=== PATIENT | female | born 1995 | race Caucasian/White ===

== ENCOUNTER → 2018-07-25 | Outpatient (CLI) | payer OTHER ==
[~2018-07-25] MED LIST: AUGMENTIN 875-1 EACH PO; LEVOFLOXACIN500 MG PO
--- NOTE | 2018-07-25 18:16 | Diagnostic Imaging Report ---
EXAM: Transabdominal and Transvaginal Pelvic Ultrasound INDICATION: \S\SPOTTING COMPARISON: None TECHNIQUE: Grayscale transverse and sagittal transabdominal and transvaginal images were obtained of the pelvis. Transvaginal imaging was medically necessary to better evaluate the endometrium and the adnexa. CLINICAL HISTORY: 23 year old A0; last menstrual period: 07/13/2018. FINDINGS: Uterus Orientation: Normal Size: 8.8 x 4.4 x 5.0 cm, Normal Mass: None Cervix: Normal Endometrium: Thickness: 0.5 cm, Normal. Appearance: Homogeneous echotexture without focal thickening. Right ovary: Size: 3.2 x 1.9 x 2.7 cm Mass/Cyst: None Left ovary: Size: 3.9 x 2.3 x 2.2 cm Mass/Cyst: None Adnexa: Normal Cul-de-sac: No free fluid IMPRESSION: Unremarkable pelvic ultrasound exam. Specifically, no masses or cystic lesions in the ovaries. No gestational sac seen. Signed by: Dr. Stephanie Lopez M.D. on 07/25/2018 6:13 PM
== END ==
LOC: US 16:30
PROVIDERS: ATTEND Family Medicine
DX: N92.0 Excessive and frequent menstruation with regular cycle (principal)
CPT/HCPCS: 76830; 76856

== ENCOUNTER → 2020-05-07 | Outpatient (CLI) | payer OTHER ==
--- NOTE | 2020-05-07 09:36 | Diagnostic Imaging Report ---
EXAM: Right upper quadrant abdominal ultrasound INDICATION: Elevated liver enzymes COMPARISON: CT abdomen and pelvis of 05/31/2013 TECHNIQUE: Transverse and longitudinal images of the right upper quadrant abdomen were obtained FINDINGS: Liver: Size: 17.0 cm in the right midclavicular line Appearance: Normal echogenicity, smooth contour Mass: No focal masses Gallbladder: No gallbladder distension, pericholecystic fluid, wall thickening, stone, or reported sonographic Lane's sign. Gallbladder wall measures 3 mm. Bile Ducts: Intrahepatic Ducts: No dilatation Extrahepatic Ducts: Common bile duct measures 3 mm Pancreas: Visualized portions of the pancreatic head, neck and proximal body are normal. Kidney: The right kidney measures 12.7 cm without evidence of hydronephrosis or stone. Vessels: Aorta: Visualized portions are normal Inferior Vena Cava: Visualized portions are normal Main Portal Vein: 1.0 cm, normal size with hepatopetal flow. Free Fluid: No ascites or pleural effusion IMPRESSION: No sonographic evidence of cholelithiasis or cholecystitis. Signed by: Jan Botello MD on 05/07/2020 9:33 AM
== END ==
LOC: US 08:32
PROVIDERS: ATTEND Internal Medicine Gastroenterology
DX: R74.8 Abnormal levels of other serum enzymes (principal)
CPT/HCPCS: 76705

== ENCOUNTER 2020-08-27 10:06 | Emergency (ER) | payer BC, OTHER ==
[~2020-08-27] VITALS: Ht 172.7 cm; Wt 54.4 kg
[2020-08-27] MEDS ORDERED: MORPHINE SULFATE INJ 4 MG/ML INJ 1ML IV STA (10:22)
--- NOTE | 2020-08-27 10:28 | Emergency Department Note ---
History of Present Illnes History of Present Illness Chief Complaint: Abdominal Complaints History of Present Illness This is a 25 year old female Chief Complaint Comment Patient in from home with complaints of right lower quadrant abdominal pain since Sunday. Patient reports that the pain has grown worse since Sunday and she has also started with fever, nausea and vomiting as well as diarrhea. Denies urinary symptoms. Historian: Patient Arrival Mode: Car [employer]el [employer]earing Broacher Required: No Onset (how long ago): day(s) (2) Location: RLQ Quality: Sharp Radiation: Reports non-radiation Severity: moderate Onset quality: gradual Duration (how long): day(s) (2) Timing of current episode: constant Progression: worsening Chronicity: new Context: Denies recent illness, Denies recent surgery Relieving factors: none Exacerbating factors: none Associated symptoms: Reports denies other symptoms Treatments prior to arrival: none Past Medical/Family History Physician Review I have reviewed the patient's past medical and family history. Any updates have been documented here. Past Medical History Recent Fever: Yes Clinical Suspicion of Infectio: Yes New/Unexplained Change in Ment: No Past Medical History: None Other Medical History: CYST R KIDNEY Past Surgical History: T&A Other Surgery: KIDNEY ABSCESS DRAINED Other Last Tetanus: UTD Review of Systems Review of Systems Constitutional: Reports as per HPI, Reports fever EENTM: Reports no symptoms Cardiovascular: Reports no symptoms Respiratory: Reports no symptoms Gastrointestinal: Reports as per HPI, Reports abdominal pain (RLQ), Reports nausea Genitourinary: Reports no symptoms Musculoskeletal: Reports no symptoms Integumentary: Reports no symptoms Neurological: Reports no symptoms Psychological: Reports no symptoms Endocrine: Reports no symptoms Hematological/Lymphatic: Reports no symptoms Physical Exam Related Data Allergies: Coded Allergies: carbinoxamine (Verified Allergy, Unknown, 03/02/15) pseudoephedrine (Verified Allergy, Unknown, 03/02/15) tomato (Verified Allergy, Unknown, 03/02/15) Triage Vital Signs Vital Signs Date Time Temp Pulse Resp B/P (MAP) Pulse Ox O2 Delivery O2 Flow Rate FiO2 08/27/20 10:12 100.9 83 16 100 Room Air Vital signs reviewed: Yes Physical Exam CONSTITUTIONAL Constitutional: Present well-developed, Present well-nourished HENT HENT: Present normocephalic, Present atraumatic, Present oropharynx clear/moist, Present nose normal HENT L/R: Present left ext ear normal, Present right ext ear normal EYES Eyes: Reports PERRL, Reports conjunctivae normal NECK Neck: Present ROM normal PULMONARY Pulmonary: Present effort normal, Present breath sounds normal CARDIOVASCULAR Cardiovascular: Present regular rhythm, Present heart sounds normal, Present capillary refill normal, Present normal rate GASTROINTESTINAL Abdominal: Present soft, Present bowel sounds normal, Present tender (RLQ); Absent nontender GENITOURINARY Genitourinary: Present exam deferred SKIN Skin: Present warm, Present dry MUSCULOSKELETAL Musculoskeletal: Present ROM normal NEUROLOGICAL Neurological: Present alert, Present oriented x 3, Present no gross motor or sensory deficits PSYCHOLOGICAL Psychological: Present mood/affect normal, Present judgement normal Results Laboratory Lab results reviewed: Yes Imaging Imaging results reviewed: Yes Diagnostics Tests Diagnostic test(s) reviewed: Yes Assessment & Plan Medical Decision Making MDM 25 y.o F presents for RLQ pain. Initial diff includes appendicitis VS colitis, vs UTI vs ectopic among others. Work up largely unremarkable. Her OBGYN called and informed of gonorrhea diagnosis. Will Treat at PID. Rocephin given and Doxy Rx. instructed her to f/u w/ [facility] [place]. Appropriate for DC. Reassessment Reassessment time: 14:32 Reassessment Pain improved after meds Assessment & Plan Final Impression: (1) Pelvic inflammatory disease Depart Disposition: HOME, SELF-CARE Last Vital Signs Date Time Temp Pulse Resp B/P (MAP) Pulse Ox O2 Delivery O2 Flow Rate FiO2 08/27/20 10:12 100.9 83 16 100 Room Air Home Meds No Active Prescriptions or Reported Meds LLOYD WALTERS MD Aug 27, 2020 10:28
[2020-08-27] MEDS ORDERED: SODIUM CHLORIDE 0.9% 1000ML 1,000 ML IV SCH (10:30)
[2020-08-27] MEDS ORDERED: ONDANSETRON HCL INJ 2MG/ML 2ML 2 MG/ML VIAL IV PRN (10:30)
[2020-08-27 10:35] LABS: BASOPHILS % 0.3 % (0.0-1.0); EOSINOPHILS # (AUTO) 0.1 (0.0-0.4); EOSINOPHILS % 0.8 % (0.0-6.0); HEMATOCRIT 36.2 % (34.2-44.1); HEMOGLOBIN 11.5 g/dL (12.0-16.0); LYMPHOCYTES # (AUTO) 1.2 (1.0-3.2); LYMPHOCYTES % 9.4 % (18.0-39.1); MEAN CORPUSCULAR HEMOGLOBIN 29.1 pg (28-32); MEAN CORPUSCULAR HGB CONC 31.8 g/dL (31-35); MEAN CORPUSCULAR VOLUME 91.6 fL (81-99); MONOCYTES # (AUTO) 0.8 (0.2-0.8); MONOCYTES % 6.7 % (4.4-11.3); NEUTROPHILS # (AUTO) 10.3 (2.1-6.9); NEUTROPHILS % 82.5 % (38.7-80.0); PLATELET COUNT 163 x10e3/uL (140-360); RED BLOOD COUNT 3.95 x10e6/uL (3.6-5.1); RED CELL DISTRIBUTION WIDTH 15.4 % (11.7-14.4)
[2020-08-27 10:58] LABS: ALANINE AMINOTRANSFERASE 14 IU/L (0-55); ALBUMIN 3.7 g/dL (3.5-5.0); ALBUMIN/GLOBULIN RATIO 1.2 (0.8-2.0); ALKALINE PHOSPHATASE 88 IU/L (40-150); BLOOD UREA NITROGEN 11 mg/dL (7-26); BUN/CREATININE RATIO 14 (6-25); CALCIUM 9.3 mg/dL (8.4-10.2); CARBON DIOXIDE 26 mmol/L (22-29); CHLORIDE 105 mmol/L (98-107); CREATININE, SERUM 0.78 mg/dL (0.57-1.11); EST GLOMERULAR FILTRATION RATE > 60 ML/MIN (60-); GLUCOSE 87 mg/dL (74-118); SODIUM 139 mmol/L (136-145)
[2020-08-27 11:15] LABS: LIPASE 6 U/L (8-78)
[2020-08-27] MEDS ORDERED: SODIUM CHLORIDE 0.9% 50ML 50 ML ONE (11:19)
[2020-08-27] MEDS ORDERED: IOPAMIDOL 370 MG/ML 200 ML INFUS..BTL INJ ONE (11:19)
[2020-08-27 11:21] LABS: HCG,QUANTITATIVE < 1.20 mIU/mL (0-10)
--- NOTE | 2020-08-27 12:04 | Diagnostic Imaging Report ---
CT of the abdomen and pelvis, with contrast. History: Right lower quadrant pain. Comparison: Pelvic ultrasound from 07/25/1980. Technique: Multidetector CT scanning of the abdomen and pelvis was performed from the level of the lung bases to the inferior pubic rami after intravenous administration of contrast. Coronal and sagittal multiplanar reformations were obtained. RADIATION DOSE: Total DLP: 709.60 mGy*cm Dose modulation, iterative reconstruction, and/or weight based adjustment of the mA/kV was utilized to reduce the radiation dose to as low as reasonably achievable. FINDINGS: The visualized intrathoracic contents are unremarkable. The liver is normal in size and attenuation without evidence of focal abnormality. The gallbladder is unremarkable. There is no biliary ductal dilatation. The stomach, spleen, pancreas, and bilateral adrenal glands are unremarkable. The kidneys are normal in size and location enhance symmetrically. Focal area of cortical scarring noted along the mid/inferior aspect of the right kidney. A punctate nonobstructing stone is identified within the inferior pole of the right kidney (axial image 40, coronal image 59). There is no evidence for hydronephrosis. No ureteral stone or dilatation is appreciated. Multiple phleboliths are noted within the pelvis, none of which to be localized within the urinary system. The urinary bladder demonstrates no significant abnormalities. The uterus appears heterogeneous, recommend correlation with menstrual cycle. No abnormal adnexal masses are identified. The abdominal aorta is normal in course and caliber. The IVC is unremarkable. Please note evaluation of bowel is limited without the use of enteric contrast material. The visualized loops of small and large bowel demonstrate no evidence of obstruction or inflammation. The appendix is visualized and appears unremarkable. There is no ascites or intraperitoneal free air. Tiny fat-containing umbilical hernia noted. No abnormally enlarged lymph nodes are identified within the abdomen or pelvis. The osseous structures demonstrate no evidence for acute fracture or destructive process. The extraperitoneal soft tissues are unremarkable. IMPRESSION: Punctate nonobstructing stone identified within the inferior pole of the right kidney. No evidence for hydronephrosis or obstructive uropathy. No other acute abdominal pelvic process identified. Normal appearing appendix visualized. Signed by: Dr. Alli Camacho MD on 08/27/2020 12:01 PM
[2020-08-27] MEDS ORDERED: MORPHINE SULFATE 2 MG/ML SYR 1ML IV STA (12:32)
[2020-08-27] MEDS ORDERED: ACETAMINOPHEN 325 MG TAB PO ONE (12:45)
--- OUTSIDE RECORDS SUMMARY | 2020-08-27 12:47 | XMS REPORT | Continuity of Care Document ---
Author Author [facility] t Organization [facility] Address [address] [place] [address] Phone Unavailable Care Team Providers Care Lending Consultant Name Role Phone Khang Cross Attphys Unavailable AJ GIBSON Attphys Unavailable RE MCGEE Attphys Unavailable Payers Payer Name Policy Type Policy Number Effective Date Expiration Date S ource Problems This patient has no known problems. Allergies, Adverse Reactions, Alerts Allergy Name Allergy Type Status Severity Reaction(s) Onset Date Inacti ve Date Treating Clinician Comments Source pseudoephedrine HCl DA Active MO 2015-07-21 00:00:00 [facility] carbinoxamine maleate DA Active MO 2015-07-21 00:00:00 [facility] latex DA Active MD 2015-07-21 00:00:00 [facility] Medications This patient has no known medications. Procedures This patient has no known procedures. Results Test Description Test Time Test Comments Results Result Comments Source CT ABDOMEN/PELVIS W 2020-08-27 11:48:00 [facility] 1995 Sex: F [facility] [address] [address] Patient Name: SONA MILLIGAN MR #: [id number] : 1995 Age/Sex: 25/F Req #: [id number] Adm Physician: Ordered by: Lloyd Cross MD Report #: [id number] Location: ER Room/Bed: Procedure: [id number] CT/CT ABDOMEN/PELVIS W Exam Date: 08/27/20 Exam Time: 1120 REPORT STATUS: Signed CT of the abdomen and pelvis, with contrast. History: Right lower quadrant pain. Comparison: Pelvic ultrasound from 07/25/1980. Technique: Multidetector CT scanning of the abdomen and pelvis was performed from the level of the lung bases to the inferior pubic rami after intravenous administration of contrast. Coronal and sagittal multiplanar reformations were obtained. RADIATION DOSE: Total DLP: 709.60 mGy*cm Dose modulation, iterative reconstruction, and/or weight based adjustment of the mA/kV was utilized to reduce the radiation dose to as low as reasonably achievable. FINDINGS: The vis ualized intrathoracic contents are unremarkable. The liver is normal in size and attenuation without evidence of focal abnormality. The gallbladder is unremarkable. There is no biliary ductal dilatation. The stomach, spleen, pancreas, and bilateral adrenal glands are unremarkable. The kidneys are normal in size and location enhance symmetrically. Focal area of cortical scarring noted along the mid/inferior aspect of the right kidney. A punctate nonobstructing stone is identified within the inferior pole of the right kidney (axial image 40, coronal image 59). There is no evidence for hydronephrosis. No ureteral stone or dilatation is appreciated. Multiple phleboliths are noted within the pelvis, none of which to be localized within the urinary system. The urinary bladder demonstrates no significant abnormalities. The uterus appears heterogeneous, recommend correlation with menstrual cycle. No abnormal adnexal masses are identified. The abdominal aorta is normal in course and caliber. The IVC is unremarkable. Please note evaluation of bowel is limited without the use of enteric contrast material. The visualized loops of small and large bowel demonstrate no evidence of obstruction or inflammation. The appendix is visualized and appears unremarkable. There is no ascites or intraperitoneal free air. Tiny fat- containing umbilical hernia noted. No abnormally enlarged lymph nodes are identified within the abdomen or pelvis. The osseous structures demonstrate no evidence for acute fracture or destructive process. The extraperitoneal soft tissues are unremarkable. IMPRESSION: Punctate nonobstructing stone identified within the inferior pole of the right kidney. No evidence for hydronephrosis or obstructive uropathy. No other acute abdominal pelvic process identified. Normal appearing appendix visualized. Signed by: Dr. Alli Camacho MD on 08/27/2020 12:01 PM Dictated By: ALLI CAMACHO MD 120 Transcribed By: QUENTIN on 08/27/20 120 COPY TO: LLOYD CROSS MD Novel Coronavirus 2018 2020-05-25 07:15:00 Test Item Novel Coronavirus 2019 nCoV (test code = COVID19) Not Detected Not Detected Testing was performed using the Aptima SARS-CoV-2 assay.This test was developed and its performance characteristicsdetermined by [employer]. This test has not beenFDA cleared or approved. This test has been authorized byFDA under an Emergency Use Authorization (EUA). This testis only authorized for the duration of time the declarationthat circumstances exist justifying the authorization ofthe emergency use of in vitro diagnostic tests fordetection of SARS-CoV-2 virus and/or diagnosis of COVID-19infection under section 564(b)(1) of the Act, 21 U.S.C.360bbb-3(b)(1), unless the authorization is terminated orrevoked sooner. When diagnostic testing is negative, thepossibility of a false negative result should be consideredin the context of a patient's recent exposures and thepresence of clinical signs and symptoms consistent withCOVID- 19. An individual without symptoms of COVID-19 andwho is not shedding SARS-CoV-2 virus would expect to have anegative (not detected) result in this assay. [facility] (test code = LCAIP) Novel Coronavirus [id number] 07:15:00* Test Item Value Reference Range Interpretation Comments Novel Coronavirus 2019 nCoV (test code = COVID19) Not Detected Not Detected Testing was performed using the Aptima SARS-CoV-2 assay.This test was developed and its performance characteristicsdetermined by [employer]. This test has not beenFDA cleared or approved. This test has been authorized byA under an Emergency Use Authorization (EUA). This testis only authorized for the duration of time the declarationthat circumstances exist justifying the authorization ofthe emergency use of in vitro diagnostic tests fordetection of SARS-CoV-2 virus and/or diagnosis of COVID-19infection under section 564(b)(1) of the Act, 21 U.S.C.360bbb-3(b)(1), unless the authorization is terminated orrevoked sooner. When diagnostic testing is negative, thepossibility of a false negative result should be consideredin the context of a patient's recent exposures and thepresence of clinical signs and symptoms consistent withCOVID- 19. An individual without symptoms of COVID-19 andwho is not shedding SARS-CoV-2 virus would expect to have anegative (not detected) result in this assay. [facility] Inpatient (test code = LCAIP) () ReceivedPerformed At: [id number] [place], [place] [id number] Nunez MD Ph:[phone] AG HEPATITIS B [id number] 07:18:00* Test Item Value Reference Range Interpretation Comments AG HEPATITIS B SURFACE (test code = HBSAG) NONREACTIVE NONREACTIVE IS CONSENT FORM SIGNED FOR HIV TESTING? YAB HEPATITIS C [id number] 07:18:00* Test Item Value Reference Range Interpretation Comments AB HEPATITIS C (test code = HCVAB) NONREACTIVE NONREACTIVE SIGNAL TO CUTOFF (test code = CUTOFF) 0.03 <0.80 N IS CONSENT FORM SIGNED FOR HIV TESTING? YAB [id number] 07:18:00* Test Item Value Reference Range Interpretation Comments AB TREPONEMA (test code = TREPAB) NONREACTIVE NONREACTIVE IS CONSENT FORM SIGNED FOR HIV TESTING? YAB HIV 1 07:18:00* Test Item Value Reference Range Interpretation Comments AB HIV 1 2 (test code = QSH18FS) NONREACTIVE NONREACTIVE Done by Siemens [employer]cline[employer] 4th Gen HIV Ag/Ab Combo Screen IS CONSENT FORM SIGNED FOR HIV TESTING? YLIVER [id number] 07:11:00* Test Item Value Reference Range Interpretation Comments TOTAL PROTEIN (test code = PROT) 5.7 gm/dL 6.3-8.2 L ALBUMIN (test code = ALB) 2.3 gm/dL 3.4-4.8 L BILIRUBIN TOTAL (test code = BILT) 0.2 mg/dL 0.2-1.0 N BILIRUBIN DIRECT (test code = BILD) 0.1 mg/dL <0.2 N SGOT/AST (test code = AST) 33 units/L 15-37 N SGPT/ALT (test code = ALT) 68 units/L 12-78 N ALKALINE PHOSPHATASE TOTAL (test code = ALKP) 375 units/L 46-116 H Specimen Comment: BLOOD SPECIMEN ALREADY IN LABCBC W/AUTO [id number] 02:03:00* Test Item Value Reference Range Interpretation Comments WHITE BLOOD CELL (test code = WBC) 12.8 K/mm3 6.6-12.1 H RED BLOOD CELL (test code = RBC) 3.00 M/mm3 3.45-5.01 L HEMOGLOBIN (test code = HGB) 9.3 g/dL 10.7-13.9 L HEMATOCRIT (test code = HCT) 28.9 % 32.1-42.1 L MEAN CELL VOLUME (test code = MCV) 96 fL 84.1-94.8 H MEAN CELL HGB (test code = MCH) 31.0 pg 27-35 N MEAN CELL HGB CONCETRATION (test code = MCHC) 32.2 gm/dL 32.2-34. 1 N RED CELL DISTRIBUTION WIDTH (test code = RDW) 13.7 % 12.4-16. 5 N PLATELET COUNT (test code = PLT) 171 K/mm3 133-385 N MEAN PLATELET VOLUME (test code = MPV) 14.0 fl 9.1-12.7 H NEUTROPHIL % (test code = NT%) 69.8 % 56.5-79.4 N LYMPHOCYTE % (test code = LY%) 16.8 % 14.3-34.3 N MONOCYTE % (test code = MO%) 6.8 % 5.1-10.4 N EOSINOPHIL % (test code = EO%) 3.4 % 0.1-3.0 H BASOPHIL % (test code = BA%) 0.9 % 0.1-1.0 N NEUTROPHIL # (test code = NT#) 9.0 K/mm3 LYMPHOCYTE # (test code = LY#) 2.2 K/mm3 MONOCYTE # (test code = MO#) 0.9 K/mm3 EOSINOPHIL # (test code = EO#) 0.44 K/mm3 BASOPHIL # (test code = BA#) 0.1 K/mm3 RBC MORPHOLOGY REQUIRED (test code = RBCM) NORMAL NORMAL PLATELET MORPHOLOGY REQUIRED (test code = PLTMR) NORMAL DARIEN L Coronavirus 2018 nCoV [id number] 01:27:00* Test Item Value Reference Range Interpretation Comments Coronavirus 2019 nCoV Bedside (test code = COVNONPUIBED) Negative Negative RESULTS CALLED TO [place] BACK & CONFIRMED? TIMA [facility]. 05/24/20 0127 This result does not rule out co-infections with otherpathogens. * False negative results may occur if a specimen isimproperly collected, transported or handled. False negativeresults may also occur if amplification inhibitors arepresent in the specimen or if inadequate levels of virusesare present in the specimen. Negative results should beconsidered in the context of a patient's recent exposures,history and the presence of clinical signs and symptomsconsistent with COVID-19. * Negative results should be treated as p resumptive andtested with an alternative FDA authorized molecular assayif necessary for clinical managment, including infectioncontrol. * As with any molecular test,mutations within the target regions Raphael ID NOW COVID-19 test could affect primerand/or probe binding resulting in failure to detect therescence of the virus.TEST PERFORMED UNDER AN EMERGENCY USE AUTHORIZATION FROM [facility] [id number] 09:30:[address] [address] Patient Name: SONA MILLIGAN MR #: [id number] : 1995 Age/Sex: 25/F Req #: [id number] Adm Physician: Ordered by: AJ GIBSON MD Report #: [id number] Location: Room/Bed: Procedure: [id number] US/US LIVER Exam Date: 05/07/20 Exam Time: 923 REPORT STATUS: Signed EXAM: Right upper quadrant abdominal ultrasound INDICATION: Elevated liver enzymes COMPARISON: CT a bdomen and pelvis of 05/31/2013 TECHNIQUE: Transverse and longitudinal images of the right upper quadrant abdomen were obtained FINDINGS: Liver: Size: 17.0 cm in the right midclavicular line Appearance: Normal echogenici ty, smooth contour Mass: No focal masses Gallbladder: No gallbladder dist ension, pericholecystic fluid, wall thickening, stone, or reported sonographic Lane's sign. Gallbladder wall measures 3 mm. Bile Ducts: Intrahepatic Ducts: No dilatation Extrahepatic Ducts: Common bile duct measures 3 mm Nixon creas: Visualized portions of the pancreatic head, neck and proximal body are normal. Kidney: The right kidney measures 12.7 cm without evidence of hydro nephrosis or stone. Vessels: Aorta: Visualized portions are normal I nferior Vena Cava: Visualized portions are normal Main Portal Vein: 1.0 cm, no rmal size with hepatopetal flow. Free Fluid: No ascites or pleural effusi on IMPRESSION: No sonographic evidence of cholelithiasis or cholecystitis . Signed by: Matt Wilder MD on 05/07/2020 9:33 AM Dictated By: LUPE WILDER MD 2 Transcribed B y: QUENTIN on 05/07/20932 COPY TO: AJ GIBSON MD CBC W/AUTO [id number] 23:36:00* Test Item Value Reference Range Interpretation Comments WHITE BLOOD CELL (test code = WBC) 17.36 x10 3/uL 4.5-11.0 H RED BLOOD CELL (test code = RBC) 3.12 x10 6/uL 3.54-5.02 L HEMOGLOBIN (test code = HGB) 10.2 g/dL 11.0-15.0 L HEMATOCRIT (test code = HCT) 30.0 % 33.0-45.0 L MEAN CELL VOLUME (test code = MCV) 96.2 fL 81.0-99.0 N MEAN CELL HGB (test code = MCH) 32.7 pg 27.0-33.0 N MEAN CELL HGB CONCETRATION (test code = MCHC) 34.0 g/dL 33.0-37. 0 N RED CELL DISTRIBUTION WIDTH CV (test code = RDW) 13.2 % 11.5- 14.5 N RED CELL DISTRIBUTION WIDTH SD (test code = RDW-SD) 46.4 fL 37 .0-54.0 N PLATELET COUNT (test code = PLT) 165 x10 3/uL 150-400 N IMMATURE PLATELET FRACTION (test code = IPF) 18.4 % 0.9-11.2 H MEAN PLATELET VOLUME (test code = MPV) 13.4 fL 7.0-9.0 H MANUAL DIFF REQUIRED (test code = MDIFF) YES WBC [id number] 23:36:00* Test Item Value Reference Range Interpretation Comments SEGMENTED NEUTROPHILS (test code = SEG) 80.9 % 37-69 H LYMPHOCYTE (test code = LYMPH) 10.9 % 23-55 L MONOCYTE (test code = MON) 5.5 % 0-10 N EOSINOPHIL (test code = EOS) 1.8 % 0.0-4.0 N MYELOCYTE (test code = MYELO) 0.9 % 0.0-0.0 H POLYCHROMASIA (test code = POLC) 1+ ANISOCYTOSIS (test code = ANISO) SLIGHT MACROCYTOSIS (test code = MACR) 1+ PLATELET ESTIMATE (test code = PLTEST) Adequate THOUSAND ADEQUATE CBC W/AUTO [id number] 23:32:00* Test Item Value Reference Range Interpretation Comments WHITE BLOOD CELL (test code = WBC) 17.36 x10 3/uL 4.5-11.0 H RED BLOOD CELL (test code = RBC) 3.12 x10 6/uL 3.54-5.02 L HEMOGLOBIN (test code = HGB) 10.2 g/dL 11.0-15.0 L HEMATOCRIT (test code = HCT) 30.0 % 33.0-45.0 L MEAN CELL VOLUME (test code = MCV) 96.2 fL 81.0-99.0 N MEAN CELL HGB (test code = MCH) 32.7 pg 27.0-33.0 N MEAN CELL HGB CONCETRATION (test code = MCHC) 34.0 g/dL 33.0-37. 0 N RED CELL DISTRIBUTION WIDTH CV (test code = RDW) 13.2 % 11.5- 14.5 N RED CELL DISTRIBUTION WIDTH SD (test code = RDW-SD) 46.4 fL 37 .0-54.0 N PLATELET COUNT (test code = PLT) 165 x10 3/uL 150-400 N IMMATURE PLATELET FRACTION (test code = IPF) 18.4 % 0.9-11.2 H MEAN PLATELET VOLUME (test code = MPV) 13.4 fL 7.0-9.0 H MANUAL DIFF REQUIRED (test code = MDIFF) YES WBC [id number] 23:32:00* Test Item Value Reference Range Interpretation Comments ANISOCYTOSIS (test code = ANISO) PLATELET ESTIMATE (test code = PLTEST) THOUSAND ADEQUATE CBC W/AUTO [id number] 23:32:00* Test Item Value Reference Range Interpretation Comments WHITE BLOOD CELL (test code = WBC) 17.36 x10 3/uL 4.5-11.0 H RED BLOOD CELL (test code = RBC) 3.12 x10 6/uL 3.54-5.02 L HEMOGLOBIN (test code = HGB) 10.2 g/dL 11.0-15.0 L HEMATOCRIT (test code = HCT) 30.0 % 33.0-45.0 L MEAN CELL VOLUME (test code = MCV) 96.2 fL 81.0-99.0 N MEAN CELL HGB (test code = MCH) 32.7 pg 27.0-33.0 N MEAN CELL HGB CONCETRATION (test code = MCHC) 34.0 g/dL 33.0-37. 0 N RED CELL DISTRIBUTION WIDTH CV (test code = RDW) 13.2 % 11.5- 14.5 N RED CELL DISTRIBUTION WIDTH SD (test code = RDW-SD) 46.4 fL 37 .0-54.0 N PLATELET COUNT (test code = PLT) 165 x10 3/uL 150-400 N IMMATURE PLATELET FRACTION (test code = IPF) 18.4 % 0.9-11.2 H MEAN PLATELET VOLUME (test code = MPV) 13.4 fL 7.0-9.0 H MANUAL DIFF REQUIRED (test code = MDIFF) YES WBC [id number] 23:32:00* Test Item Value Reference Range Interpretation Comments ANISOCYTOSIS (test code = ANISO) PLATELET ESTIMATE (test code = PLTEST) THOUSAND ADEQUATE BASIC METABOLIC [id number] 23:23:00* Test Item Value Reference Range Interpretation Comments SODIUM (test code = NA) 135 mEq/L 134-147 N POTASSIUM (test code = K) 3.5 mEq/L 3.4-5.0 N CHLORIDE (test code = CL) 101 mEq/L 100-108 N CARBON DIOXIDE (test code = CO2) 27 mEq/L 21-33 N ANION GAP (test code = GAP) 11 0-20 N GLUCOSE (test code = GLU) 86 mg/dL 70-110 N BLOOD UREA NITROGEN (test code = BUN) 9 mg/dL 7-18 N GLOMERULAR FILTRATION RATE (test code = GFR) 87.4 110-120 L Units of measure = ml/min/1.73 m2 CREATININE (test code = CREAT) 0.8 mg/dL 0.6-1.3 N CALCIUM (test code = CA) 9.3 mg/dL 8.0-10.5 N HEPATIC FUNCTION [id number] 23:23:00* Test Item Value Reference Range Interpretation Comments TOTAL PROTEIN (test code = PROT) 6.8 g/dL 6.4-8.2 N ALBUMIN (test code = ALB) 2.70 g/dL 3.4-5.0 L BILIRUBIN TOTAL (test code = BILT) 0.3 MG/DL <1.5 N BILIRUBIN DIRECT (test code = BILD) < 0.10 MG/DL 0.0-0.30 N BILIRUBIN INDIRECT (test code = BILIND) 0.20 MG/DL SGOT/AST (test code = AST) 36 IUnit/L 15-37 N SGPT/ALT (test code = ALT) 77 IUnit/L 15-65 H ALKALINE PHOSPHATASE TOTAL (test code = ALKP) 179 IUnit/L 20-125 H [id number] 23:23:00* Test Item Value Reference Range Interpretation Comments LIPASE (test code = LIP) 103 IUnit/L 73-393 N BASIC METABOLIC [id number] 23:18:00* Test Item Value Reference Range Interpretation Comments SODIUM (test code = NA) 135 mEq/L 134-147 N POTASSIUM (test code = K) 3.5 mEq/L 3.4-5.0 N CHLORIDE (test code = CL) 101 mEq/L 100-108 N CARBON DIOXIDE (test code = CO2) 27 mEq/L 21-33 N ANION GAP (test code = GAP) 11 0-20 N GLUCOSE (test code = GLU) 86 mg/dL 70-110 N BLOOD UREA NITROGEN (test code = BUN) 9 mg/dL 7-18 N GLOMERULAR FILTRATION RATE (test code = GFR) 110-120 CREATININE (test code = CREAT) mg/dL 0.6-1.3 CALCIUM (test code = CA) 9.3 mg/dL 8.0-10.5 N HEPATIC FUNCTION [id number] 23:18:00* Test Item Value Reference Range Interpretation Comments TOTAL PROTEIN (test code = PROT) g/dL 6.4-8.2 ALBUMIN (test code = ALB) g/dL 3.4-5.0 BILIRUBIN TOTAL (test code = BILT) MG/DL <1.5 BILIRUBIN DIRECT (test code = BILD) MG/DL 0.0-0.30 SGOT/AST (test code = AST) IUnit/L 15-37 SGPT/ALT (test code = ALT) IUnit/L 15-65 ALKALINE PHOSPHATASE TOTAL (test code = ALKP) IUnit/L 20-125 [id number] 23:18:00* Test Item Value Reference Range Interpretation Comments LIPASE (test code = LIP) 103 IUnit/L 73-393 N CBC W/AUTO [id number] 23:13:00* Test Item Value Reference Range Interpretation Comments WHITE BLOOD CELL (test code = WBC) 17.36 x10 3/uL 4.5-11.0 H RED BLOOD CELL (test code = RBC) 3.12 x10 6/uL 3.54-5.02 L HEMOGLOBIN (test code = HGB) 10.2 g/dL 11.0-15.0 L HEMATOCRIT (test code = HCT) 30.0 % 33.0-45.0 L MEAN CELL VOLUME (test code = MCV) 96.2 fL 81.0-99.0 N MEAN CELL HGB (test code = MCH) 32.7 pg 27.0-33.0 N MEAN CELL HGB CONCETRATION (test code = MCHC) 34.0 g/dL 33.0-37. 0 N RED CELL DISTRIBUTION WIDTH CV (test code = RDW) 13.2 % 11.5- 14.5 N RED CELL DISTRIBUTION WIDTH SD (test code = RDW-SD) 46.4 fL 37 .0-54.0 N PLATELET COUNT (test code = PLT) 165 x10 3/uL 150-400 N IMMATURE PLATELET FRACTION (test code = IPF) 18.4 % 0.9-11.2 H MEAN PLATELET VOLUME (test code = MPV) 13.4 fL 7.0-9.0 H NEUTROPHIL % (test code = NT%) % 56.0-77.0 LYMPHOCYTE % (test code = LY%) % 14.0-32.0 NEUTROPHIL # (test code = NT#) x10 3/uL 2.0-7.6 LYMPHOCYTE # (test code = LY#) x10 3/uL 1.0-3.8 MANUAL DIFF REQUIRED (test code = MDIFF) UA RFLX MICR CULT IF [id number] 23:11:00* Test Item Value Reference Range Interpretation Comments UA COLOR (test code = COLU) YELLOW YEL/STRAW UA APPEARANCE (test code = APPU) CLEAR CLEAR UA GLUCOSE DIPSTICK (test code = DGLUU) NEGATIVE NEGATIVE UA BILIRUBIN DIPSTICK (test code = BILU) NEGATIVE NEGATIVE UA KETONE DIPSTICK (test code = KETU) NEGATIVE NEGATIVE UA SPECIFIC GRAVITY (test code = SGU) 1.009 1.005-1.030 N UA BLOOD DIPSTICK (test code = DIANA) NEGATIVE NEGATIVE UA PH DIPSTICK (test code = LUH) 6.0 5.0-7.0 N UA PROTEIN DIPSTICK (test code = PROU) NEGATIVE NEGATIVE UA UROBILINIOGEN DIPSTICK (test code = URO) 0.2 mg/dL 0.2-1.0 UA NITRITE DIPSTICK (test code = DOE) NEGATIVE NEGATIVE UA LEUKOCYTE ESTERASE DIPSTICK (test code = LEUU) NEGATIVE NEGA TIVE UA WBC (test code = WBCU) 4-9 WBC/HPF 0-3 A UA RBC (test code = RBCU) 0-3 RBC/HPF 0-3 UA WBC NO REFLEX (test code = WBCUCL) 4-9 WBC/HPF 0-3 A UA BACTERIA (test code = BACU) TRACE /HPF NONE SEEN UA SQUAMOUS CELLS (test code = SQU) 0-5 /HPF NONE SEEN UA MUCUS (test code = MUCU) TRACE /LPF NONE SEEN Indication for culture: Flank PainSpecimen Description: CLEAN CATCH- US [id number] 23:10:00 Name: SONA MILLIGAN [facility] : 1995 Age/S: 24 / F [address] [place] [address] Unit #: [id number] Loc: [place] [address] Phys: Caty Estes NP Acct: [id number] Dis Date: Status: REG ER PHONE #: [phone] Exam Date: 04/08/2020 2303 FAX #: [phone] Reason: abd pain, 33 weeks EXAMS: CPT CODE: [id number] [place] L[place] 02874 STUDY: - US LTD 04/08/2020 9:53 PM Ordering Physician: Caty Estes NP Patient Name: SONA MILLIGAN MR: [id number] : 1995; Age: 24 years y/o Female Clinical Indication: abd pain, 33 weeks Comparison: None FINDINGS: Multiple static images from an obstetrical ultrasound including mac scale and M-mode imaging are submitted for interpretation. GENERAL DESCRIPTION Single live intrauterine . Presentation: Cephalic/vertex Placental location: Anterior Placental grade: I Placenta previa: No. Amniotic fluid: Normal in appearance. GORDON: Qualitatively adequate. Cervix: Limited visualization estimated at approximately 4.3 cm. STRUCTURES Brain: Limited visualization without abnormality. Spine: Limited visualization without abnormality. Heart: Normal 4 chambered. heart rate: 138 beats per minute. Kidneys: Limited visualization without abnormality. Urinary Bladder: Never well-visualized. Stomach: Normal. Umbilical Cord: 3 vessel. Cord Insertion: Limited visualization without abnormality. Extremities: Limited visualization without abnormality. BIOMETRIC MEASUREMENTS BPD 8.5 cm 34 W 1 D HEAD CIRCUMFERENCE 30.5 cm 33 W 6 D PAGE 1 Signed Report (CONTINUED) Name: [facility] 1995 Age/S: 24 / [address] [place] [address] Unit #: [id number] Loc: [facility] [place] [address] Phys: Caty Estes NP Acct: [id number] Dis Date: Status: REG ER PHONE #: [phone] Exam Date: 04/08/2020 2301 FAX #: Reason: abd pain, 33 weeks EXAMS: [facility]: [id number] [facility] [address] <Continued> ABDOMINAL CIRCUMFERENCE 29.2 cm 33 W 1 D FEMUR LENGTH 6.3 cm 32 W 4 D COMPOSITE SONOGRAPHIC AGE 33 W 2 D ESTIMATED WEIGHT 2129+ -319 g ESTIMATED DATE DELIVERY (US) 05/25/2020 Growth parameters: within normal limits. IMPRESSION: Single live intrauterine at 33 weeks 2 days as above described. Limited visualization of multiple structures without demonstrated abnormality. GENERAL OBSERVATIONS [facility] ULTRASOUND: 1. A normal or negative sonogram re port should not delay further investigation of a clinically suspicious o r abnormal . 2. position or overlap of pa rts may prevent complete evaluation of the fetus. 3. C ongenital and developmental abnormalities are not always sonographically visualized. 4. Repeat sonograms may be necessary depending on the clinical development during . SL: TPAINTER-H PAGE 2 Signed Report (CONTINUED) Name: SONA MILLIGAN : 1995 Age/S: 24 / F [address] [place] [address] Unit #: [id number] Loc: [facility] [place] [address] Phys: Caty Estes NP Acct: [id number] Dis Date: Status: REG ER PHONE #: [phone] Exam Date: 2302 FAX #: [phone] Reason: abd pain, 33 week s EXAMS: CPT CODE: [id number] US LTD [address]9713 <Continued> at 2310 Reported and signed by: Juan Darden M.D. CC: Caty Estes NP Technologist: Emy Morley RDMS(BR)(AB) Trnscb Date/Time: 04/08/2020 (2309) [email or web address] Orig Print D/T: S: 04/08/2020 (2312) Probe: PAGE 3 Signed Report - US ABDOMEN [id number] 23:04:00 Name: SONA MILLIGAN [facility] : 1995 Age/S: 24 / F [address] [place] [address] Unit #: [id number] Loc: [place] [address] Phys: Adan Estes LETTER OF CREDIT CLERK Acct: [id number] Di s Date: Status: REG ER PHONE #: [phone] Exam Date: 04/08/20202301 FAX #: Reason: Abdominal Pain EXAMS: CPT CODE: [id number] US ABDOMEN LTD 38124 STUDY: - US ABDOMEN LTD 04/08/2020 9:53 PM Ordering Physician: SHELLY Bess Name: SONA MILLIGAN MR: [id number] : 1995; Age: 24 years y/o Female Clinical Indication: with right upper abdominal q uadrant pain. Comparison: None TECHNIQUE: Grayscale and limited color sonographic evaluation of the abdomen was performed with standard technique. FINDINGS: LIVER: The hepatic size, shape, and echotexture are normal. No focal hepat ic lesion is appreciated. BILE DUCTS: No evidence of intrahepatic or extrahepatic biliary ductal dilatation. The visualized com mon bile duct measures 3 mm at maximum. Portions of the distal common bile duct are never well-visualized. GALLBLADDER: Mildly contrac colten probably thick-walled gallbladder without cholelithiasis or pericholec ystic inflammation. PANCREAS: Incompletely visualized pancre as secondary to artifact from overlying bowel gas. The visualized portion s of the pancreas are normal. KIDNEY: The right kidney is no rmal in size, shape, and echotexture. A small hyperechoic focus measuring up to 4.8 mm in the right inferior renal pole either represents artifact with renal sinus fat or possibly a tiny nonobstructing calculus although p osterior shadowing is not demonstrated. Right kidney: 13.1 cm. AORTA AND INFERIOR VENA CAVA: The visualized portions are darien l.. PAGE 1 Signed Report (CONTINUE D) Name: SONA MILLIGAN [facility] : 1995 Age/S: 24 / F [address] [place] [address] Blvd Unit #: [id number] Loc: [place] [address] Phys: Tremaine Estes NP Acct: [id number] Dis Date: Status: REG ER PHONE #: [phone] Exam Date: 04/08/20202301 FAX #: Reason: Abdominal Pain EXAMS: CPT CODE: [id number] US ABDOMEN [facility] [id number] <Continued> ASCITES: No significant fluid accumulation. IMPRESSION: Contracted appropriately thick-walled gallbladder. No cholelithiasis, inflammation, or biliary ductal dilatation. Tiny hyperechoic focus inferiorly in the right kidney on the representing artifact with renal sinus fat versus a tiny nonobstructing right renal calculus. Incompletely visualized pancreas without abnormality. SL: TPAINTER-H at 2304 Reported and signed by: Juan Darden M.D. CC: Caty Estes NP Technologist: Emy Morley RDMS(VINEET)(AB) Trnscb Date/Time: 04/08/2020 (2303) [email or web address] Orig Print D/T: S: 04/08/2020 (2307) Probe: PAGE 2 Signed Report [id number] 18:00:00 [place] [address] Patient Name: SONA MILLIGAN MR #: [id number] : 1995 Age/Sex: 23/F Req #: [id number] [facility] Physician: Ordered by: MCGEE ANDREW DO Report #: [id number] Location: Room/Bed: Procedure: [id number] US/US TRANSVAGINAL Exam Date: Exam Time: REPORT STATUS: Signed EXAM: Tr ansabdominal and Transvaginal Pelvic Ultrasound INDICATION: MAX RISON: None TECHNIQUE: Grayscale transverse and sagittal transabdominal and t ransvaginal images were obtained of the pelvis. Transvaginal imaging was medic ally necessary to better evaluate the endometrium and the adnexa. CLINICA L HISTORY: 23 year old A0; last menstrual period: 07/13/2018. FINDI NGS: Uterus Orientation: Normal Size: 8.8 x 4.4 x 5.0 cm, Normal Mass: None Cervix: Normal Endometrium: Thickness: 0.5 cm, Normal. Appearance: Homogeneous echotexture without focal thickening. Right ovary: Size: 3.2 x 1.9 x 2.7 cm Mass/Cyst: None Left ovary: Size: 3.9 x 2.3 x 2.2 cm Mass/Cyst: None Adnexa: Normal Cul-de-sac: No free flui d IMPRESSION: Unremarkable pelvic ultrasound exam. Specifically, no masses or cystic lesions in the ovaries. No gestational sac seen. Signed by: Dr. Stephanie Lopez M.D. on 07/25/2018 6:13 PM Dictated By: STEPHANIE LOPEZ MD 1022 Transcribed By: QUENTIN on 08/02/18 1022 COPY TO: RE NAVARRO DO US PELVIS COMPLETE NON [id number] 18:00:00 [place] [address] Patient Name: SONA MILLIGAN MR #: [id number] : 1995 Age/Sex: 23/F Req #: [id number] Adm Physician: Ordered by: MCGEE ANDREW DO Report #: [id number] Location: Room/Bed: Procedure: [id number] US/US PELVIS COMPLETE NON OB Exam Date: Exam Time: REPORT STATUS: Signed EXAM: Transabdominal and Transvaginal Pelvic Ultrasound INDICATION: COMPARISON: None TECHNIQUE: Grayscale transverse and sagittal transabdom inal and transvaginal images were obtained of the pelvis. Transvaginal imaging was medically necessary to better evaluate the endometrium and the adnexa. CLINICAL HISTORY: 23 year old A0; last menstrual period: 07/13/2018. FINDINGS: Uterus Orientation: Normal Size: 8.8 x 4.4 x 5.0 cm, Normal Mass: None Cervix: Normal Endometrium: Thickness: 0.5 cm, Normal. Appearance: Homogeneous echotexture without focal thickening. R ight ovary: Size: 3.2 x 1.9 x 2.7 cm Mass/Cyst: None Left ovary: Si ze: 3.9 x 2.3 x 2.2 cm Mass/Cyst: None Adnexa: Normal Cul-de-sac: No free fluid IMPRESSION: Unremarkable pelvic ultrasound exam. Specif ically, no masses or cystic lesions in the ovaries. No gestational sac seen. Signed by: Dr. Stephanie Lopez M.D. on 07/25/2018 6:13 PM Dic tated By: STEPHANIE LOPEZ MD 1022 Transcribed By: QUENTIN on 08/02/18 1022 COPY TO: RE MCGEE DO
[2020-08-27] MEDS ORDERED: ACETAMINOPHEN 325 MG TAB ONE (12:49)
[2020-08-27] MEDS ORDERED: MORPHINE SULFATE 2 MG/ML SYR 1ML ONE (12:50)
[2020-08-27 13:00] LABS: BILIRUBIN,URINE NEGATIVE (NEGATIVE); CLARITY,URINE CLEAR (CLEAR); COLOR,URINE YELLOW (YELLOW); KETONES,URINE TRACE (NEGATIVE); LEUKOCYTE ESTERASE ,URINE NEGATIVE (NEGATIVE); NITRITE,URINE NEGATIVE (NEGATIVE); PROTEIN,URINE DIPSTICK NEGATIVE (NEGATIVE); URINE UROBILINOGEN 0.2 mg/dL (0.2 - 1)
--- NOTE | 2020-08-27 13:10 | NUR ---
spoke to Avis from Ultrasound to request US Pelvis for patient
[2020-08-27 13:29] LABS: BACTERIA,URINE RARE /HPF; EPITHELIAL CELLS,URINE FEW /LPF; WBC,URINE (MAN) 0-5 /HPF (0-5)
[2020-08-27] MEDS ORDERED: CEFTRIAXONE SOD 250 MG VIAL IM ONE (14:00)
--- NOTE | 2020-08-27 14:18 | Diagnostic Imaging Report ---
EXAM: US PELVIS COMPLETE NON OB DATE: 08/27/2020 1:34 PM INDICATION: Right lower quadrant pain, concern for ovarian torsion COMPARISON: None FINDINGS: Transabdominal images were obtained of the pelvis. The uterus is normal in size measuring 9.1 x 4.3 x 4.3 cm. No focal intrauterine lesion is identified. The endometrial stripe appears unremarkable measuring 4 mm in maximal thickness, within normal limits. The right ovary measures 3.8 x 2.6 x 3.1 cm. The left ovary measures 3.0 x 2.1 x 2.3 cm. Arterial and venous flow are preserved bilaterally. No abnormal adnexal masses are identified. No free fluid is visualized in the pelvis. IMPRESSION: Unremarkable pelvic ultrasound examination. Specifically, no sonographic evidence for ovarian torsion. Signed by: Dr. Alli Camacho MD on 08/27/2020 2:14 PM
[2020-08-27 14:48] VITALS: BP 128/77
== END 2020-08-27 14:50 | disposition home or self-care (01) ==
LOC: ER 10:30
DX: R10.31 Right lower quadrant pain (principal); R11.2 Nausea with vomiting, unspecified; N73.9 Female pelvic inflammatory disease, unspecified
CPT/HCPCS: 36415; 74177; 76856; 80053; 81001; 83690; 84702; 85025; 99284; J0696; J2270 ×2; J2405; J7030; Q9967

== ENCOUNTER 2021-08-26 22:54 | Emergency (ER) | payer OTHER, MEDICARE ==
[~2021-08-26] VITALS: Ht 172.7 cm; Wt 79.4 kg
[2021-08-26] MEDS ORDERED: ONDANSETRON HCL INJ 2MG/ML 2ML 2 MG/ML VIAL IV STA (23:11)
[2021-08-26] MEDS ORDERED: DICYCLOMINE HCL 20 MG/2 ML VIAL IM ONE (23:15)
[2021-08-26 23:42] LABS: CLARITY,URINE CLEAR (CLEAR); COLOR,URINE YELLOW (YELLOW); KETONES,URINE 1+ (NEGATIVE); LEUKOCYTE ESTERASE ,URINE NEGATIVE (NEGATIVE); NITRITE,URINE NEGATIVE (NEGATIVE); PROTEIN,URINE DIPSTICK NEGATIVE (NEGATIVE); URINE UROBILINOGEN 0.2 mg/dL (0.2 - 1)
[2021-08-26 23:43] LABS: BASOPHILS # (AUTO) 0.1 (0.0-0.1); BASOPHILS % 0.8 % (0.0-1.0); EOSINOPHILS # (AUTO) 0.1 (0.0-0.4); EOSINOPHILS % 1.7 % (0.0-6.0); HEMOGLOBIN 12.3 g/dL (12.0-16.0); LYMPHOCYTES # (AUTO) 0.9 (1.0-3.2); LYMPHOCYTES % 13.7 % (18.0-39.1); MEAN CORPUSCULAR HEMOGLOBIN 28.4 pg (28-32); MEAN CORPUSCULAR HGB CONC 31.5 g/dL (31-35); MEAN CORPUSCULAR VOLUME 90.1 fL (81-99); MONOCYTES # (AUTO) 0.6 (0.2-0.8); MONOCYTES % 9.5 % (4.4-11.3); NEUTROPHILS # (AUTO) 4.7 (2.1-6.9); NEUTROPHILS % 74.1 % (38.7-80.0); PLATELET COUNT 145 x10e3/uL (140-360); RED BLOOD COUNT 4.33 x10e6/uL (3.6-5.1); RED CELL DISTRIBUTION WIDTH 15.6 % (11.7-14.4)
[2021-08-26 23:48] LABS: BACTERIA,URINE FEW /HPF; EPITHELIAL CELLS,URINE MODERATE /LPF; MUCUS,URINE MODERATE (RARE); RBC,URINE 0-5 /HPF (0-5); WBC,URINE (MAN) 0-5 /HPF (0-5)
[2021-08-26 23:57] LABS: AMYLASE 29 U/L (25-125); LIPASE 18 U/L (8-78)
[2021-08-26 23:58] LABS: ANION GAP 14.9 mmol/L (8-16); CREATININE, SERUM 0.77 mg/dL (0.57-1.11); POTASSIUM 3.9 mmol/L (3.5-5.1)
[2021-08-26 23:59] LABS: ALBUMIN 4.1 g/dL (3.5-5.0); ALBUMIN/GLOBULIN RATIO 1.4 (0.8-2.0); CALCIUM 8.4 mg/dL (8.4-10.2)
[2021-08-27] MEDS ORDERED: KETOROLAC TROMETHAMINE 30 MG/ML VIAL IV STA (00:16)
[2021-08-27 02:29] VITALS: BP 125/93
== END 2021-08-27 02:25 | disposition home or self-care (01) ==
LOC: ER 23:13
DX: R10.11 Right upper quadrant pain (principal); R11.0 Nausea; R30.0 Dysuria
CPT/HCPCS: 36415; 74176; 76705; 80053; 81001; 81025; 82150; 83690; 85025; 99283; C9113; J0500; J1885; J2405

== ENCOUNTER → 2021-09-22 | Outpatient (CLI) | payer OTHER ==
[~2021-09-22] MED LIST changes: +ONDANSETRON ODT8 MG PO
== END ==
LOC: OR 10:57 → RAD 10:57 → EDSTATUS 12:00
PROVIDERS: ATTEND Internal Medicine Gastroenterology
DX: R10.11 Right upper quadrant pain (principal); Z01.812 Encounter for preprocedural laboratory examination; Z20.822 Contact with and (suspected) exposure to COVID-19; Z53.8 Procedure and treatment not carried out for other reasons
CPT/HCPCS: 81025; U0002

== ENCOUNTER 2023-05-08 17:14 | Inpatient (IN) | payer BC, OTHER ==
[~2023-05-08] VITALS: Ht 172.7 cm; Wt 79.4 kg
[2023-05-08] MEDS ORDERED: Morphine 4mg INJECTION 4 MG/ML INJ IV STA (17:27)
[2023-05-08] MEDS ORDERED: LACTATED RINGER'S 1,000 ML IV ONE (17:30)
[2023-05-08 17:47] LABS: CLARITY,URINE SL CLOUDY (CLEAR); COLOR,URINE YELLOW (YELLOW); KETONES,URINE NEGATIVE (NEGATIVE); LEUKOCYTE ESTERASE ,URINE SMALL (NEGATIVE); NITRITE,URINE POSITIVE (NEGATIVE); PROTEIN,URINE DIPSTICK 2+ (NEGATIVE); URINE UROBILINOGEN 0.2 mg/dL (0.2 - 1)
[2023-05-08 17:53] LABS: BASOPHILS # (AUTO) 0.1 (0.0-0.1); BASOPHILS % 0.5 % (0.0-1.0); EOSINOPHILS # (AUTO) 0.1 (0.0-0.4); EOSINOPHILS % 0.9 % (0.0-6.0); HEMATOCRIT 40.5 % (34.2-44.1); HEMOGLOBIN 13.3 g/dL (12.0-16.0); LYMPHOCYTES # (AUTO) 1.5 (1.0-3.2); LYMPHOCYTES % 13.4 % (18.0-39.1); MEAN CORPUSCULAR HEMOGLOBIN 31.5 pg (28-32); MEAN CORPUSCULAR HGB CONC 32.8 g/dL (31-35); MONOCYTES # (AUTO) 0.8 (0.2-0.8); MONOCYTES % 6.7 % (4.4-11.3); NEUTROPHILS # (AUTO) 8.9 (2.1-6.9); NEUTROPHILS % 78.1 % (38.7-80.0); PLATELET COUNT 208 x10e3/uL (140-360); RED BLOOD COUNT 4.22 x10e6/uL (3.6-5.1); RED CELL DISTRIBUTION WIDTH 12.3 % (11.7-14.4)
[2023-05-08 17:59] LABS: ALBUMIN 3.7 g/dL (3.5-5.0); CALCIUM 8.9 mg/dL (8.4-10.2); CREATININE, SERUM 0.83 mg/dL (0.57-1.11)
[2023-05-08 18:05] LABS: BACTERIA,URINE MODERATE /HPF; RBC,URINE 21-50 /HPF (0-5); WBC,URINE (MAN) 21-50 /HPF (0-5)
[2023-05-08 18:06] LABS: EPITHELIAL CELLS,URINE FEW /LPF
[2023-05-08] MEDS ORDERED: KETOROLAC TROMETHAMINE 30 MG/ML VIAL IV STA (18:36)
[2023-05-08] MEDS: Vancomycin IV 1 GM in SODIUM CHLORIDE 0.9% 250ML 250 ML IV SCH (19:04)
[2023-05-08] MEDS ORDERED: Morphine 4mg INJECTION 4 MG/ML INJ IV PRN (19:45)
[2023-05-08] MEDS: HYDROMORPHONE 1MG/1ML INJ IV PRN (22:15)
[2023-05-09] VITALS (11 sets, daily range): BP systolic 119–131; BP diastolic 74–89; PULSE 71–88; RESP 15–18; TEMP 98.8–100.8; O2SAT 98–100
[2023-05-09] MEDS ORDERED: SODIUM CHLORIDE 0.9% 250ML 250 ML ONE (01:43)
[2023-05-09] MEDS: HYDROMORPHONE 1MG/1ML INJ IV PRN ×6 (02:20→20:51)
[2023-05-09 04:52] LABS: BASOPHILS % 0.4 % (0.0-1.0); EOSINOPHILS # (AUTO) 0.2 (0.0-0.4); EOSINOPHILS % 1.8 % (0.0-6.0); HEMATOCRIT 35.9 % (34.2-44.1); HEMOGLOBIN 11.7 g/dL (12.0-16.0); LYMPHOCYTES # (AUTO) 1.7 (1.0-3.2); LYMPHOCYTES % 18.4 % (18.0-39.1); MEAN CORPUSCULAR HGB CONC 32.6 g/dL (31-35); MONOCYTES # (AUTO) 0.9 (0.2-0.8); MONOCYTES % 9.8 % (4.4-11.3); NEUTROPHILS # (AUTO) 6.4 (2.1-6.9); NEUTROPHILS % 69.2 % (38.7-80.0); PLATELET COUNT 179 x10e3/uL (140-360); RED BLOOD COUNT 3.78 x10e6/uL (3.6-5.1); RED CELL DISTRIBUTION WIDTH 12.4 % (11.7-14.4)
[2023-05-09 05:12] LABS: ANION GAP 12.7 mmol/L (8-16); CALCIUM 8.5 mg/dL (8.4-10.2); CREATININE, SERUM 0.83 mg/dL (0.57-1.11); POTASSIUM 4.7 mmol/L (3.5-5.1)
[2023-05-09] MEDS: ONDANSETRON HCL INJ 2MG/ML 2ML 2 MG/ML VIAL IV PRN ×3 (05:56→13:46)
[2023-05-09] MEDS: Vancomycin IV 1 GM in SODIUM CHLORIDE 0.9% 250ML 250 ML IV SCH ×2 (05:56→17:32)
[2023-05-10] MEDS: Morphine 4mg INJECTION 4 MG/ML INJ IV PRN ×2 (01:36→08:18)
[2023-05-10 04:56] LABS: BASOPHILS % 0.5 % (0.0-1.0); EOSINOPHILS # (AUTO) 0.1 (0.0-0.4); EOSINOPHILS % 1.3 % (0.0-6.0); HEMATOCRIT 38.5 % (34.2-44.1); HEMOGLOBIN 12.5 g/dL (12.0-16.0); LYMPHOCYTES # (AUTO) 1.9 (1.0-3.2); LYMPHOCYTES % 23.4 % (18.0-39.1); MEAN CORPUSCULAR HEMOGLOBIN 31.2 pg (28-32); MEAN CORPUSCULAR HGB CONC 32.5 g/dL (31-35); MONOCYTES # (AUTO) 1.1 (0.2-0.8); MONOCYTES % 13.4 % (4.4-11.3); NEUTROPHILS # (AUTO) 4.9 (2.1-6.9); PLATELET COUNT 174 x10e3/uL (140-360); RED BLOOD COUNT 4.01 x10e6/uL (3.6-5.1); RED CELL DISTRIBUTION WIDTH 12.1 % (11.7-14.4)
[2023-05-10 05:18] LABS: ANION GAP 13.9 mmol/L (8-16); CALCIUM 8.6 mg/dL (8.4-10.2); CREATININE, SERUM 0.77 mg/dL (0.57-1.11); POTASSIUM 3.9 mmol/L (3.5-5.1)
[2023-05-10 08:09] VITALS: BP 132/91; PULSE 97; RESP 16; TEMP 98.7; O2SAT 100
[2023-05-10] MEDS: ONDANSETRON HCL INJ 2MG/ML 2ML 2 MG/ML VIAL IV PRN ×3 (08:17→19:21)
[2023-05-10 10:00] VITALS: BP 132/91; PULSE 97; RESP 16; TEMP 98.7; O2SAT 100
[2023-05-10] MEDS: HYDROMORPHONE 1MG/1ML INJ IV PRN ×4 (10:25→22:20)
[2023-05-10 12:40] VITALS: BP 136/92; PULSE 88; RESP 16; TEMP 98.4; O2SAT 99
[2023-05-10 20:00] VITALS: BP 136/92; PULSE 88; RESP 16; TEMP 98.4; O2SAT 99
[2023-05-11] VITALS (7 sets, daily range): BP systolic 108–120; BP diastolic 65–80; PULSE 65–76; RESP 17–19; TEMP 97.7–98.6; O2SAT 100
[2023-05-11] MEDS: HYDROMORPHONE 1MG/1ML INJ IV PRN ×6 (03:36→23:53)
[2023-05-11] MEDS: ONDANSETRON HCL INJ 2MG/ML 2ML 2 MG/ML VIAL IV PRN ×4 (09:49→23:53)
[2023-05-11 18:09] LABS: CLARITY,URINE CLEAR (CLEAR); COLOR,URINE YELLOW (YELLOW); KETONES,URINE NEGATIVE (NEGATIVE); LEUKOCYTE ESTERASE ,URINE NEGATIVE (NEGATIVE); NITRITE,URINE NEGATIVE (NEGATIVE); PROTEIN,URINE DIPSTICK NEGATIVE (NEGATIVE); URINE UROBILINOGEN 0.2 mg/dL (0.2 - 1)
[2023-05-11 18:14] LABS: EPITHELIAL CELLS,URINE MODERATE /LPF; WBC,URINE (MAN) 0-5 /HPF (0-5)
[2023-05-11 18:22] LABS: CREATININE,URINE RANDOM 39.51 mg/dL (47-110); TOTAL PROTEIN, URINE 7.7 mg/dL (1-14)
[2023-05-12] VITALS: BP 110/74; PULSE 60; RESP 18; TEMP 98.3; O2SAT 99
[2023-05-12 04:53] VITALS: BP 106/79; PULSE 61; RESP 16; TEMP 97.5; O2SAT 100
[2023-05-12 07:08] LABS: BASOPHILS # (AUTO) 0.1 (0.0-0.1); BASOPHILS % 0.9 % (0.0-1.0); EOSINOPHILS # (AUTO) 0.3 (0.0-0.4); EOSINOPHILS % 3.7 % (0.0-6.0); HEMATOCRIT 41.4 % (34.2-44.1); HEMOGLOBIN 13.3 g/dL (12.0-16.0); LYMPHOCYTES # (AUTO) 2.5 (1.0-3.2); LYMPHOCYTES % 30.9 % (18.0-39.1); MEAN CORPUSCULAR HEMOGLOBIN 31.1 pg (28-32); MEAN CORPUSCULAR HGB CONC 32.1 g/dL (31-35); MONOCYTES # (AUTO) 0.8 (0.2-0.8); MONOCYTES % 9.8 % (4.4-11.3); NEUTROPHILS # (AUTO) 4.4 (2.1-6.9); NEUTROPHILS % 54.1 % (38.7-80.0); PLATELET COUNT 194 x10e3/uL (140-360); RED BLOOD COUNT 4.27 x10e6/uL (3.6-5.1); RED CELL DISTRIBUTION WIDTH 12.1 % (11.7-14.4)
[2023-05-12 07:29] LABS: ALBUMIN 3.2 g/dL (3.5-5.0); ALBUMIN/GLOBULIN RATIO 0.9 (0.8-2.0); CALCIUM 9.3 mg/dL (8.4-10.2); CREATININE, SERUM 0.82 mg/dL (0.57-1.11)
[2023-05-12 07:33] VITALS: BP 130/91; PULSE 71; RESP 19; TEMP 98.1; O2SAT 100
[2023-05-12 08:00] VITALS: BP 130/91; PULSE 71; RESP 19; TEMP 98.1; O2SAT 100
[2023-05-12] MEDS: HYDROMORPHONE 1MG/1ML INJ IV PRN (08:38)
[2023-05-12 11:46] VITALS: BP 109/70; PULSE 64; RESP 18; TEMP 97.9; O2SAT 100
== END 2023-05-12 14:40 | disposition home or self-care (01) | DRG 690 ==
LOC: ER 17:24 → ERHOLD 18:41 → MED/SURG 23:42
PROVIDERS: ADMIT Internal Medicine; ATTEND Internal Medicine
DX: N12 Tubulo-interstitial nephritis, not specified as acute or chronic (principal); E87.1 Hypo-osmolality and hyponatremia; R80.9 Proteinuria, unspecified; R10.9 Unspecified abdominal pain; Z88.1 Allergy status to other antibiotic agents; Z91.040 Latex allergy status; Z87.440 Personal history of urinary (tract) infections; Z84.1 Family history of disorders of kidney and ureter; Z20.822 Contact with and (suspected) exposure to COVID-19
CPT/HCPCS: 36415; 74176; 76770; 80048; 80053; 80202; 81001; 81025; 82570; 84156; 84550; 85025; 87086; 94799; 99284; J0692; J0696; J1170; J1885; J2270; J2405; J7050

== ENCOUNTER 2025-02-23 12:56 | Emergency (ER) | payer BC, OTHER ==
[~2025-02-23] VITALS: Ht 172.7 cm; Wt 79.4 kg
[~2025-02-23 12:56] MED LIST changes: +AMOX TR-K CLV1 EAC2 PO; +MULTI-VITAMIN1 EACH PO; +ONDANSETRON ODT4 MG PO; +ULTRAM 50MG50 MG PO
[2025-02-23 13:35] VITALS: PULSE 89; RESP 17; TEMP 100.5
[2025-02-23 14:15] LABS: BASOPHILS % 0.2 % (0.0-1.0); HEMATOCRIT 40.8 % (34.2-44.1); HEMOGLOBIN 14.2 g/dL (12.0-16.0); LYMPHOCYTES # (AUTO) 0.7 (1.0-3.2); MEAN CORPUSCULAR HEMOGLOBIN 32.2 pg (28-32); MEAN CORPUSCULAR HGB CONC 34.8 g/dL (31-35); MEAN CORPUSCULAR VOLUME 92.5 fL (81-99); MONOCYTES # (AUTO) 0.5 (0.2-0.8); MONOCYTES % 10.5 % (4.4-11.3); NEUTROPHILS # (AUTO) 3.2 (2.1-6.9); NEUTROPHILS % 73.8 % (38.7-80.0); PLATELET COUNT 106 x10e3/uL (140-360); RED BLOOD COUNT 4.41 x10e6/uL (3.6-5.1); RED CELL DISTRIBUTION WIDTH 12.9 % (11.7-14.4); WHITE BLOOD COUNT 4.39 x10e3/uL (4.8-10.8)
[2025-02-23 14:16] LABS: CLARITY,URINE SL CLOUDY (CLEAR); COLOR,URINE YELLOW (YELLOW)
[2025-02-23 14:17] LABS: BILIRUBIN,URINE MODERATE (NEGATIVE); GLUCOSE, URINE NEGATIVE (NEGATIVE); KETONES,URINE >=160 (NEGATIVE); LEUKOCYTE ESTERASE ,URINE NEGATIVE (NEGATIVE); NITRITE,URINE NEGATIVE (NEGATIVE); PH,URINE 6 (5 - 7); PROTEIN,URINE DIPSTICK 1+ (NEGATIVE); URINE UROBILINOGEN 0.2 mg/dL (0.2 - 1)
[2025-02-23] MEDS: SODIUM CHLORIDE 0.9% 1000ML 1,000 ML IV ONE (14:28)
[2025-02-23] MEDS: ACETAMINOPHEN 325 MG TAB PO ONE (14:28)
[2025-02-23] MEDS: ONDANSETRON HCL INJ 2MG/ML 2ML 2 MG/ML VIAL IV STA (14:29)
[2025-02-23 14:32] LABS: BACTERIA,URINE MODERATE /HPF; EPITHELIAL CELLS,URINE MANY /LPF; RBC,URINE 0-5 /HPF (0-5); WBC,URINE (MAN) 0-5 /HPF (0-5)
[2025-02-23 14:38] LABS: ALBUMIN 4.2 g/dL (3.5-5.0); ALBUMIN/GLOBULIN RATIO 1.4 (0.8-2.0); ANION GAP 17.6 mmol/L (8-16); BILIRUBIN,TOTAL 0.3 mg/dL (0.2-1.2); CREATININE, SERUM 0.75 mg/dL (0.57-1.11); POTASSIUM 3.6 mmol/L (3.5-5.1); TOTAL PROTEIN 7.3 g/dL (6.5-8.1)
[2025-02-23] MEDS: KETOROLAC TROMETHAMINE 30 MG/ML VIAL IV STA (15:29)
[2025-02-23] MEDS ORDERED: ONDANSETRON ODT4 MG PO (16:02)
[2025-02-23 16:11] VITALS: BP 113/76; PULSE 68; RESP 16; TEMP 98; O2SAT 98
== END 2025-02-23 16:10 | disposition home or self-care (01) ==
LOC: ER 13:40
DX: R50.9 Fever, unspecified (principal); B34.9 Viral infection, unspecified; M54.50 Low back pain, unspecified; R30.0 Dysuria; R11.2 Nausea with vomiting, unspecified; R19.7 Diarrhea, unspecified; R53.81 Other malaise; R09.89 Other specified symptoms and signs involving the circulatory and respiratory systems
CPT/HCPCS: 36415; 71046; 80053; 81001; 84702; 85025; 99284; J1885; J2405; J7030